=== PATIENT | male | born 1960 | race Asian ===

== ENCOUNTER 2019-06-05 09:01 | Outpatient (CLI) | payer BC | END 2019-06-05 09:02 | disposition home or self-care (01) | LOC: DTY/OP 09:01 | PROVIDERS: ATTEND Surgery | DX: E66.01 Morbid (severe) obesity due to excess calories (principal) | CPT/HCPCS: 97802 ==

== ENCOUNTER 2019-07-06 16:05 | Outpatient (CLI) | payer BC ==
[2019-07-06 17:11] LABS: #Basophils 0.1 thou/uL (0.0-0.2); #Eosinphils 0.4 thou/uL (0.0-0.7); #Lymphocytes 3.4 thou/uL (1.20-3.40); #Monocytes 0.9 thou/uL (0.11-0.59); #Neutrophils 6.5 thou/uL (1.40-6.50); %Eosinophils 3.1 % (0.0-10.0); %Lymphocytes 30.1 % (21.0-51.0); %Monocytes 8.2 % (0.0-10.0); %Neutrophils 57.7 % (42.0-75.0); Hemoglobin 14.6 g/dL (14.0-18.0); Mean Corpuscular HGB CONC 33.2 g/dL (32.0-36.0); Mean Corpuscular Hemoglobin 28.3 pg (27.0-31.0); Mean Corpuscular Volume 85.2 fL (78.0-98.0); Mean Platelet Volume 7.4 fL (7.4-10.4); Platelet Count 226 thou/uL (130-400); RBC Distribution Width 12.3 % (11.5-14.5); Red Blood Cell (RBC) Count 5.17 mill/uL (4.70-6.10); White Blood Cell (WBC) Count 11.3 thou/uL (4.8-10.8)
--- NOTE | 2019-07-06 17:14 | RAD ---
XR Chest 1 View HISTORY: Preoperative evaluation COMPARISON: None FINDINGS: The heart size is normal. The lungs are well expanded without focal areas of consolidation, pneumothorax or pleural effusions. IMPRESSION: No radiographic evidence of acute cardiopulmonary process.
[2019-07-06 17:44] LABS: ALT (SGPT) 29 U/L (8-55); AST (SGOT) 21 U/L (5-34); Albumin 3.9 g/dL (3.5-5.0); Alkaline Phosphatase 79 U/L (40-110); Anion Gap 12 mmol/L (10-20); BUN (Urea Nitrogen) 12 mg/dL (8.4-25.7); Bilirubin, Total 0.6 mg/dL (0.2-1.2); Calc. Creatinine Clearance 0 mL/min (70-130); Calcium 8.6 mg/dL (7.8-10.44); Carbon Dioxide 23 mmol/L (22-29); Chloride 107 mmol/L (98-107); Estimated GFR-MDRD 83; Globulin 3.1 g/dL (2.4-3.5); Glucose 102 mg/dL (70-105); Potassium 3.9 mmol/L (3.5-5.1); Sodium 138 mmol/L (136-145)
[2019-07-06 18:05] LABS: Hemoglobin A1c 5.7 % (4.0-6.0)
== END 2019-07-06 16:06 | disposition home or self-care (01) ==
LOC: LABBT 16:05
PROVIDERS: ATTEND Surgery
DX: Z01.818 Encounter for other preprocedural examination (principal); E66.01 Morbid (severe) obesity due to excess calories
CPT/HCPCS: 71045; 80053; 83036; 85025

== ENCOUNTER 2019-07-06 16:11 | Inpatient (IN) | payer BC ==
[2019-07-16] MEDS ORDERED: Fentanyl 100 MCG/2 ML VIAL ONE ×2 (06:20→10:10)
[2019-07-16] MEDS ORDERED: HYDROmorphone 0.5 MG/0.5 ML SYRINGE ONE (06:45)
[2019-07-16] MEDS ORDERED: Bupivacaine 0.25% HCL 30 ML VIAL ONE (07:05)
[2019-07-16] MEDS ORDERED: Lidocaine 1% w/Epinephrine 1:100K 20 ML VIAL ONE (07:05)
[2019-07-16] MEDS ORDERED: Heparin 5,000 UNITS/ML VIAL ONE (07:07)
[2019-07-16] MEDS ORDERED: Hydrocodone-Acetamin 15 ML UDCUP PO PRN (08:59)
[2019-07-16] MEDS ORDERED: diphenhydrAMINE 50 MG/ML VIAL IVP PRN ×2 (08:59→09:46)
[2019-07-16] MEDS ORDERED: Dextrose 5% in Water 1,000 ML IV PRN (08:59)
[2019-07-16] MEDS ORDERED: Dextrose 50% Abboject 50 ML SYRINGE SLOW IVP PRN (08:59)
[2019-07-16] MEDS ORDERED: hydrALAZINE 20 MG/ML VIAL SLOW IVP PRN (08:59)
[2019-07-16] MEDS ORDERED: Promethazine HCl 25 MG/ML VIAL IM PRN ×2 (08:59→09:46)
[2019-07-16] MEDS ORDERED: Ondansetron PF 4 MG/2 ML Vial IVP PRN ×2 (08:59→09:46)
[2019-07-16] MEDS ORDERED: diphenhydrAMINE 25 MG CAP PO PRN (09:46)
[2019-07-16] MEDS ORDERED: Zolpidem Tartrate 5 MG TAB PO PRN (09:46)
[2019-07-16] MEDS ORDERED: Ketorolac Tromethamine 30 MG/ML VIAL IVP PRN (09:46)
[2019-07-16] MEDS ORDERED: diphenhydrAMINE 50 MG/ML VIAL IM PRN (09:46)
[2019-07-16] MEDS ORDERED: Naloxone HCl 0.4 mg/ml Vial IV PRN (09:46)
[2019-07-16] MEDS ORDERED: fentaNYL Citrate/PF 2,000 MCG in Sodium Chloride 0.9% 60 ML IV PRN (09:46)
[2019-07-16] MEDS ORDERED: Communication Order-Pharmacy FS SCH (10:00)
[2019-07-16] MEDS ORDERED: Promethazine HCl 25 MG/ML VIAL ONE (10:46)
[2019-07-16] MEDS: Enoxaparin Sodium 40 MG/0.4 ML SYRINGE SC SCH (11:38)
[2019-07-16] MEDS: Pantoprazole 40 MG VIAL IVP SCH (11:40)
[2019-07-16] MEDS: D5 1/2 NS w/20 mEq KCL 1,000 ML IV SCH ×3 (11:40→19:46)
[2019-07-16] MEDS ORDERED: Ketorolac Tromethamine 30 MG/ML VIAL IVP SCH (12:00)
[2019-07-16] MEDS ORDERED: Ondansetron PF 4 MG/2 ML Vial ONE (14:35)
[2019-07-16] MEDS ORDERED: Rocuronium Bromide 10 MG/ML (10ML VIAL) ONE (14:35)
[2019-07-16] MEDS ORDERED: Glycopyrrolate 0.2 MG/ML 5 ML SYRINGE ONE (14:35)
[2019-07-16] MEDS ORDERED: PROPOFOL 200 MG/20 ML VIAL ONE (14:35)
[2019-07-16] MEDS ORDERED: Lidocaine 1% PF 5 ML VIAL ONE (14:35)
[2019-07-16 16:18] VITALS: BMI 39.3
[2019-07-17] MEDS: D5 1/2 NS w/20 mEq KCL 1,000 ML IV SCH (03:41)
[2019-07-17 05:45] LABS: #Basophils 0.1 thou/uL (0.0-0.2); #Lymphocytes 2.6 thou/uL (1.20-3.40); #Monocytes 1.5 thou/uL (0.11-0.59); #Neutrophils 9.9 thou/uL (1.40-6.50); %Basophils 0.4 % (0.0-1.0); %Eosinophils 0.3 % (0.0-10.0); %Lymphocytes 18.2 % (21.0-51.0); %Monocytes 10.9 % (0.0-10.0); %Neutrophils 70.2 % (42.0-75.0); Hemoglobin 12.9 g/dL (14.0-18.0); Mean Corpuscular Hemoglobin 28.1 pg (27.0-31.0); Mean Corpuscular Volume 85.2 fL (78.0-98.0); Mean Platelet Volume 7.4 fL (7.4-10.4); Platelet Count 221 thou/uL (130-400); RBC Distribution Width 11.9 % (11.5-14.5); Red Blood Cell (RBC) Count 4.59 mill/uL (4.70-6.10); White Blood Cell (WBC) Count 14.1 thou/uL (4.8-10.8)
[2019-07-17 06:09] LABS: Anion Gap 11 mmol/L (10-20); BUN (Urea Nitrogen) 9 mg/dL (8.4-25.7); Calc. Creatinine Clearance 160 mL/min (70-130); Calcium 7.9 mg/dL (7.8-10.44); Carbon Dioxide 22 mmol/L (22-29); Chloride 105 mmol/L (98-107); Estimated GFR-MDRD 82; Glucose 121 mg/dL (70-105); Potassium 3.7 mmol/L (3.5-5.1); Sodium 134 mmol/L (136-145)
[2019-07-17 08:32] VITALS: BP 151/94; TEMP 98.3
[2019-07-17] MEDS ORDERED: FLU VACC QS2019-20(6MOS UP)/PF 60 MCG/0.5 ML SYRINGE IM ONE (09:00)
[2019-07-17] MEDS: Enoxaparin Sodium 40 MG/0.4 ML SYRINGE SC SCH (09:09)
[2019-07-17] MEDS: Pantoprazole 40 MG VIAL IVP SCH (09:10)
--- NOTE | 2019-07-17 10:33 | RAD ---
Upper GI series single column: DATE: 07/17/2019 HISTORY: 59-year-old male very recently status post bariatric surgery. TECHNIQUE: Patient swallowed 15 mL Gastrografin while standing. Brief, intermittent fluoroscopy. FINDINGS: Total fluoroscopy time: 0.5 minutes. Dose area product: 321. uGy*m^2 Gastrografin enters the proximal portion of the stomach immediately. Soon afterwards, there is contra st flowing through narrowed gastric channel. After mild delay, contrast is seen in the junction between the second and third stages of the duodenum. No evidence of extravasation. IMPRESSION: No evidence of complications, immediately status post is grossly gastrectomy.
--- NOTE | 2019-07-17 12:06 | OP ---
DATE OF PROCEDURE: 07/16/2019 PREOPERATIVE DIAGNOSIS: Morbid obesity. PROCEDURE PERFORMED: Laparoscopic sleeve gastrectomy with esophagogastroscopy. INDICATIONS: A 59-year-old male, morbidly obese, who has attempted multiple weight loss programs without success. FINDINGS: 38-Macanese bougie used. DESCRIPTION OF PROCEDURE: After informed consent was obtained, the patient was taken to the operating room, given general endotracheal anesthesia, placed in the supine position. Abdomen was prepped and draped in usual fashion. Local anesthesia was infiltrated subcutaneously and deep. 12 mm incision was performed approximately 8 inches above the xiphoid slightly to the left. Veress needle inserted. Drop test performed. Pneumoperitoneum was created to a volume of 2 L of carbon dioxide. Utilizing a bladeless 12-mm trocar and 0-degree laparoscope, direct visual entry into the abdominal cavity was performed. Pneumoperitoneum was then created to a pressure of 15 mmHg and the patient was placed in steep reverse Trendelenburg position. Simona liver retractor inserted. Left lobe of the liver retracted superiorly. The pylorus was identified. A 12-mm port placed on the right beneath it, two 12s placed left subcostal. The omentum was taken off the greater curvature 5 cm from the pylorus. Short gastrics divided with the LigaSure and the left crura defined with LigaSure. A 38-Macanese bougie inserted, directed into the antrum. The linear 60 mm green load stapler used to divide the antrum to the bougie, gold load along the bougie, and a series of blues through the angle of His. Intraoperative endoscopy was performed. The video endoscope was inserted under direct vision and advanced into the sleeve. Staple line inspected. There was no bleeding. Staple line was then tested by inflating the new stomach with pressurized air under water. There was no air leak. Stomach was decompressed. Scope removed. The remnant stomach removed from the abdomen through the left lateral port site. The fascia was closed with 0 Vicryl suture and the GraNee needle. Trocars and retractors removed. Skin closed with interrupted 4-0 Rapide. Dermabond applied. The patient tolerated the procedure well, transferred to Recovery in good condition. Sponge and needle count verified correct x2. Job ID: [id number]
--- NOTE | 2019-07-17 14:04 | DIS ---
DATE OF ADMISSION: 07/16/2019 DATE OF DISCHARGE: 07/17/2019 DISCHARGE DIAGNOSIS: Morbid obesity. PROCEDURES DURING ADMISSION: Laparoscopic sleeve gastrectomy, intraoperative esophagogastroscopy, and postoperative Gastrografin swallow. HOSPITAL COURSE: The patient was admitted, taken to the operating room, where he underwent a sleeve gastrectomy. Postoperatively, he did well. His x-ray was fine. He was started on liquids. He is tolerating well. He is discharged home in good condition on hydrocodone and Zofran. He will follow up with me in 2 weeks. Job ID: [id number]
== END 2019-07-17 11:54 | disposition home or self-care (01) | DRG 621 ==
LOC: SURG A 07-16 06:17 → SURG B 07-16 11:22
PROVIDERS: ADMIT Surgery; ATTEND Surgery
PROC: 0DB64Z3 Excision of Stomach, Percutaneous Endoscopic Approach, Vertical (ICD-10-PCS; principal; 2019-07-16)
PROC: 0DJ08ZZ Inspection of Upper Intestinal Tract, Via Natural or Artificial Opening Endoscopic (ICD-10-PCS; 2019-07-16)
DX: E66.01 Morbid (severe) obesity due to excess calories (principal); Z68.39 Body mass index [BMI] 39.0-39.9, adult
CPT/HCPCS: 36415; 74241; 80048; 85025; 88307; 88312; 94760; C9113; J0690; J1170; J1644; J1650; J1885; J2001; J2405; J2550; J2704; J3010; S0020

== ENCOUNTER 2020-03-10 08:35 | Outpatient (CLI) | payer BC ==
--- NOTE | 2020-03-10 09:50 | RAD ---
EXAM: XR Lumbar Spine Comp W Bending PROVIDED CLINICAL HISTORY: Low back pain for 6 months. COMPARISON: None FINDINGS: There are 5 nonrib-bearing lumbar-type vertebral bodies. Scattered osteophytes are seen within the manjinder mbar spine greater in the upper lumbar spine. The vertebral body heights are within normal limits. There is mild narrowing of the L1-2 and L2-3 levels. The vertebral body heights are within normal casillas its. No fracture or subluxation is seen involving the lumbar spine. Multiple surgical clips overlie the left upper quadrant. Calcifications overlie the pelvis likely rel ated to phleboliths with vascular calcifications seen in the abdominal aorta. IMPRESSION: Degenerative changes lumbar spine, but no fracture or subluxation is seen.
--- NOTE | 2020-03-10 09:52 | RAD ---
EXAM: XR Thoracic Spine 2 View PROVIDED CLINICAL HISTORY: Low back pain. COMPARISON: None FINDINGS: The upper thoracic spine is obscured on the lateral view due to overlying structures. However, the ve rtebral body heights and intervertebral disc spaces do appear to be within normal limits, and no fracture or subluxation is seen involving the thoracic spine. Surgical clips overlie the left upper q uadrant with associated radiopaque suture material. IMPRESSION: No acute findings.
--- NOTE | 2020-03-10 12:02 | RAD ---
CERVICAL SPINE 4 VIEWS: Date: 03/10/2020 HISTORY: Cervicalgia. FINDINGS: Cervical vertebra maintain normal height and alignment. There are mild to moderate degenerative kincaid es in the lower cervical spine with mild loss of disc space at C5-6. Anterior osteophytes and posteri or spondylosis at this level. The other disc spaces are preserved. Posterior elements are normally al igned with mild facet hypertrophy. IMPRESSION: Degenerative changes at C4-5 and C5-6. POS: AGW
== END 2020-03-10 08:36 | disposition home or self-care (01) ==
LOC: BICRAD 08:35
PROVIDERS: ATTEND Family Medicine
DX: M54.5 Low back pain (principal); M54.6 Pain in thoracic spine; M54.2 Cervicalgia; M47.812 Spondylosis without myelopathy or radiculopathy, cervical region; M47.816 Spondylosis without myelopathy or radiculopathy, lumbar region
CPT/HCPCS: 72040; 72070; 72100